=== PATIENT | female | born 1980 | race Caucasian/White ===

== ENCOUNTER → 2022-05-25 07:25 | Outpatient (CLI) | payer BC, SELFPAY ==
--- NOTE | ~2022-05-25 | XR_ITS ---
EXAMINATION: XR chest 2V 05/25/2022 07:39 INDICATION: Cough for one month PROCEDURE: 2 view chest COMPARISON: Comparison to multiple prior studies sequentially, with oldest reviewed study dated 11/28. FINDINGS: The lungs are clear. The cardiomediastinal silhouette is within normal limits. There are no pleural effusions. There is no pneumothorax suspected. IMPRESSION: 1: NO ACUTE CARDIOPULMONARY DISEASE. Reviewed, dictated and finalized at location A.
== END ==
PROVIDERS: PCP Family Medicine; Visit Provider Physician Assistant
DX: R05.9 Cough, unspecified (principal)
CPT/HCPCS: 71046

== ENCOUNTER 2023-03-31 09:38 | Emergency (ER) | payer SELFPAY ==
--- NOTE | ~2023-03-31 | XR_ITS ---
EXAMINATION: XR hand LT min 3V DATE: 03/31/2023 10:07 INDICATION: Left hand injury. Laceration. TECHNIQUE: 3 views of left hand were obtained. COMPARISON: None. FINDINGS: There is an open fracture of tuft of second distal phalanx with 5 mm distraction. There are open fractures of third distal phalanx and head of third middle phalanx with tiny displaced fracture fragments. There is a laceration of the tip of fourth digit. There is a laceration of the tip of fir st digit. Joint spaces are normal. IMPRESSION: 1. Open fractures of the second distal phalanx and third middle and distal phalanges. Reviewed, dictated and finalized at location A. IMPRESSION: 1. Open fractures of the second distal phalanx and third middle and distal phal anges.
[2023-03-31 09:43] VITALS: BP 136/82; PULSE 60; RESP 18; TEMP 36.4; O2SAT 98
--- NOTE | 2023-03-31 10:34 | ED.WOUNDLAC ---
HPI - Wound/Laceration General Chief Complaint: Wound/Laceration Stated Complaint: left hand injuries Time Seen by Provider: 03/31/23 09:57 Related Data Home Medications Medication Instructions Recorded Confirmed levonorgestrel 21 mcg/24 hours (8 1 device intrauterine ONCE 12/16/20 06/02/22 yrs) 52 mg intrauterine device (Mirena) fenofibrate nanocrystallized 48 mg 48 mg PO DAILY 09/22/21 06/02/22 tablet metoprolol tartrate 50 mg tablet 50 mg PO BID 09/22/21 06/02/22 Allergies Allergy/AdvReac Type Severity Reaction Status Date / Time ethinyl estradiol AdvReac Severe severe Verified 03/31/23 09:43 [From NuvaRing] depression etonogestrel [From NuvaRing] AdvReac Severe severe Verified 03/31/23 09:43 depression PMFSH Past Medical History Medical History History of Holter monitoring (~06/07/07) 24 hr, normal Normal echocardiogram (~02/03/09) Surgical History Surgical History H/O section (~1998) H/O section (~2003) H/O section (~2007) History of tonsillectomy History of tubal ligation (~2013) Hx of LASIK Family History Family History Father Diabetes mellitus Mother Diabetes mellitus Hypertension Grandparent Family history of malignant neoplasm Malignant neoplasm of prostate Social History Social History (Updated 05/25/22 @ 08:59 by Erlin Zimmer MA) Smoking packs per day: 0.1 Smoking cigarettes per day: 2.0 Years smoked: 2 Smoking pack-years: 0.20 Smoking status: Former smoker Smoking end date: 08/13/00 Additional smoking assessment comments: States she was a social smoker in her teenage/young adult years. Alcohol intake: current Drinks per week: 1 Substance use type: does not use Course Consultations Consultation #1: Dr. Garcia Will come over in few minutes Date: 03/31/23 Time: 10:44 Vital Signs Vital signs: Vital Signs Temperature 36.4 C 03/31/23 09:43 Pulse Rate 60 08/19/23 09:43 Respiratory Rate 18 03/31/23 09:43 Blood Pressure 136/82 03/31/23 09:43 Pulse Oximetry 98 03/31/23 09:43 Temperature 36.4 C 03/31/23 09:43 Pulse Rate 60 03/31/23 09:43 Respiratory Rate 18 03/31/23 09:43 Blood Pressure 136/82 03/31/23 09:43 Pulse Oximetry 98 03/31/23 09:43 MDM - Wound/Laceration MDM Narrative Medical decision making narrative: 42 years old white female came by private car with left finger injury, table saw injury prior to arrival. Unknown last tetanus. No other injuries. Physical examination showed laceration at the left middle 3 fingers dorsally, laceration along the nails of the 3 fingers. X-ray of the left finger showed open fractures of the second distal phalanx and third middle and distal phalanges. In the ED patient received a tetanus shot and 2 g of Ancef IV, Dr. Garcia was came to the emergency room for inpatient management, patient will be discharged on Keflex, Percocet and to follow-up with Dr. Garcia coming Sunday. the pt was discharged to home.the pt,s condition upon discharge was fair,education was provided to the pt in reference to the final impression,discharge study results,treatment,prognosis and need for follow up . Differential Diagnosis Differential diagnosis: Likely laceration and other (Open fracture) Imaging Data Radiologist's impression: Impressions Hand X-Ray 03/31/23 10:07 IMPRESSION: 1. Open fractures of the second distal phalanx and third middle and distal phalanges. Critical Care Time Critical Care Time Critical Care Time: Yes Total Critical Care Time: 25 Discharge Plan Discharge Clinical Impression: Laceration Open fracture of finger of left hand Qualifiers: Encounter type: initial encounter Finger: middle finger Phalanx: distal Fracture alignment: nondispl
[2023-03-31] MEDS: TETANUS,DIPHTHERIA,AC PERTUSSIS ADULT (0.5 ML) BOOSTRIX IM (11:16)
[2023-03-31] MEDS: ONDANSETRON INJ 4 MG/2 ML VIAL IV PUSH (11:55)
[2023-03-31] MEDS: HYDROmorphone HCL INJ (*CRX) 1 MG/ML SYR 0.5 MG IV PUSH (11:58)
[2023-03-31] MEDS: ceFAZolin 2 GM/D5W 50 ML 2 GM/50 ML BAG IVPB (12:02)
--- NOTE | 2023-03-31 12:17 | PC.NURSE ---
Hand consult at bedside.
--- NOTE | 2023-03-31 14:06 | W.PM.PROC2 ---
Procedure Note - Detailed Date of Procedure 03/31/23 Pre-op Diagnosis left hand injuries Post-op Diagnosis Other (1. for sq cm partial skin avulsion left thumb pad. 2. Open tuft fracture of the left index with nail involvement. 3. The open avulsion fracture of the pre distal and middle phalanges of the left middle finger with the nail involvement. 4. skin laceration with partial extensor tendon i) Procedure Performed 12 cm total complex repair left index, middle and ring fingers. Surgeon Tushar Garcia MD Anesthesia Local Indications table saw injury at home to nondominant left hand Description of Procedure the patient was comfortable on the gurney in the emergency room. She had received some Dilaudid. She has been in the ER for couple of hours after injuring her left hand while working on a project at home using a table saw. she had been updated with her tetanus prophylaxis and received IV antibiotics. And review the x-rays with the ER physician who admitted her. For the most part there were avulsion injuries where the saw had cut into bone removing bony material but there was no shaft instability. The patient was comfortable. Each of the digits was anesthetized with 2% lidocaine with epinephrine. the wounds were carefully evaluated. Adequate anesthesia was obtained. The wounds were explored and carefully repaired with sutures in to include skin lacerations and nail bed injuries. The partial laceration of the extensor tendon of the ring finger in zone 3 was not repaired she had demonstrated adequate extension and flexion. There were no injuries to the palmar aspect of the fingers. Some of the shredded tissue that could be spared was excised with scissors. Other small pieces from around the nail bed or paronychia were carefully replaced and sutured. A digital tourniquet was applied to each finger as it was repaired. Antibiotic Telfa gauze dressings were applied to each finger separately and then the 3 radial fingers were wrapped together, the thumb was separate, there was no dressing to the 5th There were no immediate complications. The patient is being discharged home with instructions to leave the bandage on and will follow up in my office in approximately 4 days she will have a prescription for cephalexin and and oral analgesics. Estimated Blood Loss 6 Drains No Packing No Pathology None sent Complications No immediate complications Condition Stable Disposition No change
[2023-03-31 14:46] VITALS: BP 124/76; PULSE 64; RESP 18; O2SAT 99
== END 2023-03-31 14:48 | disposition home or self-care (01) ==
PROVIDERS: Emergency Provider Emergency Medicine; PCP Family Medicine
DX: S62.631B Displaced fracture of distal phalanx of left index finger, initial encounter for open fracture (principal); S62.633B Displaced fracture of distal phalanx of left middle finger, initial encounter for open fracture; S62.623B Displaced fracture of middle phalanx of left middle finger, initial encounter for open fracture; S66.325A Laceration of extensor muscle, fascia and tendon of left ring finger at wrist and hand level, initial encounter; S61.012A Laceration without foreign body of left thumb without damage to nail, initial encounter; Z23 Encounter for immunization; W31.2XXA Contact with powered woodworking and forming machines, initial encounter
CPT/HCPCS: 13132; 13133; 73130; 90471; 90715; 96365; 96375; 99284; J0690; J1170; J2405

== ENCOUNTER 2023-07-13 14:28 | Outpatient (CLI) | payer OTHER, SELFPAY ==
--- NOTE | ~2023-07-13 | XR_ITS ---
XR finger 3rd LT min 2V DATE: 07/13/2023 14:56 INDICATION: History of table saw injury to digits TECHNIQUE: 3 views of third digit COMPARISON: 03/31/2023 ( FINDINGS: Old fracture deformities of the tuft of the distal phalanx and the medial head of the middl e phalanx. No recent fracture or dislocation is noted otherwise. IMPRESSION: Old fractures of middle and distal phalanges Reviewed, dictated and finalized at location A. COOK
== END 2023-07-13 14:29 | disposition home or self-care (01) ==
PROVIDERS: PCP Family Medicine; Visit Provider Plastic Surgery
DX: S62.633D Displaced fracture of distal phalanx of left middle finger, subsequent encounter for fracture with routine healing (principal); X58.XXXD Exposure to other specified factors, subsequent encounter
CPT/HCPCS: 73140

== ENCOUNTER 2024-02-27 08:08 | Outpatient (CLI) | payer OTHER, SELFPAY ==
--- NOTE | ~2024-02-27 | US_ITS ---
Abdominal Sonogram: Real-time sonographic imaging of the abdomen was performed. Clinical History: Abdominal pain, nephrolithiasis Findings: The liver appears normal with no evidence of mass lesion or bile duct dilatation. Main por abhishek vein demonstrates normal direction of flow. The spleen is normal in size without evidence of foca l lesion. The gallbladder is well distended, and demonstrates 4 mm gallbladder wall polyp. The commo n bile duct measures 3 mm. The visualized pancreas, aorta, and IVC are unremarkable. The right kidn ey measures 12.8 cm in length and the left kidney measures 11.0 cm. There is no hydronephrosis or re nal calculus. Impression: 4 mm gallbladder wall polyp. Reviewed, dictated and finalized at location M. Impression: 4 mm gallbladder wall polyp.
== END 2024-02-27 08:09 ==
LOC: GOSHIMG 08:09
PROVIDERS: PCP Family Medicine; Visit Provider Family Medicine
DX: R10.11 Right upper quadrant pain (principal); K82.4 Cholesterolosis of gallbladder
CPT/HCPCS: 76700

== ENCOUNTER 2024-02-27 08:31 | Outpatient (CLI) | payer OTHER, SELFPAY ==
[2024-02-27 13:07] LABS: Basophils Percent Auto 0.3 % (0.2-1.2); Hematocrit 36.9 % (37.0-47.0); Hemoglobin 12.4 g/dL (12.0-15.0); Immature Granulocyte Absolute 0.03 K/mm3 (0.00-0.031); Immature Granulocyte Percent A 0.4 % (0-0.5); Lymphocytes Percent Auto 29.4 % (18.3-44.2); Mean Corpuscular HGB Conc 33.6 g/dl (32-36); Mean Corpuscular Hemoglobin 31.1 pg (26-34); Mean Corpuscular Volume 92.5 fl (80-100); Mean Platelet Volume 10.6 fl (7.4-10.4); Monocytes Absolute Auto 0.5 K/mm3 (0.1-0.6); Monocytes Percent Auto 7.6 % (2.6-8.5); Neutrophils Absolute Auto 4.2 K/mm3 (1.3-6.7); Neutrophils Percent Auto 62.3 % (45.5-73.1); Platelet Count Result 260 k/mm3 (150-375); Red Blood Count 3.99 M/mm3 (4.2-5.4); White Blood Count 6.8 K/mm3 (4.5-10.0)
[2024-02-27 13:15] LABS: Alanine Aminotransferase 28 U/L (6-35); Albumin Level 4.5 g/dL (3.5-5.1); Alkaline Phosphatase 45 U/L (38-126); Anion Gap 12 mmol/L (4-12); Aspartate Amino Transferase 50 U/L (14-36); Bilirubin,Total 0.3 mg/dL (0.2-1.3); Blood Urea Nitrogen 14 mg/dL (7-17); Calcium 9.2 mg/dL (8.4-10.2); Carbon Dioxide 24 mmol/L (22-30); Chloride 103 mmol/L (98-107); Cholesterol 153 mg/dL (0-200); Estimated Glomerular Filt Rate > 60; Glucose 90 mg/dL (65-110); HDL Direct 30 mg/dL; Potassium 4.1 mmol/L (3.4-5.0); Sodium 139 mmol/L (137-145); Triglycerides 182 mg/dL (<150)
[2024-02-27 13:26] LABS: LDL Cholesterol Direct 96 mg/dL
[2024-02-27 14:08] LABS: Thyroid Stimulating Hormone Reflex 0.863 uIU/mL (0.465-4.68)
== END 2024-02-27 08:32 | disposition home or self-care (01) ==
LOC: ANHGOSHLAB 08:32
PROVIDERS: PCP Family Medicine; Visit Provider Family Medicine
DX: F33.1 Major depressive disorder, recurrent, moderate (principal); Z79.899 Other long term (current) drug therapy
CPT/HCPCS: 36415; 80053; 80061; 84443; 85025